=== PATIENT | male | born 1975 | race African-American/Black ===

== ENCOUNTER 2018-08-19 06:08 | Emergency (ER) | payer OTHER ==
[~2018-08-19] VITALS: Ht 172.7 cm; Wt 54.6 kg
[~2018-08-19 06:08] MED LIST: PSEU120T12 PO
[2018-08-19 06:17] VITALS: Ht 172.7 cm; Wt 54.6 kg
[2018-08-19] MEDS ORDERED: IBUP-1542 PO (07:18)
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
[2018-08-19 07:30] VITALS: BP 167/96; PULSE 77; RESP 17
[2018-08-19] MEDS ORDERED: IBUPROFEN 800 MG TAB PO ONE (07:30)
== END 2018-08-19 07:45 | disposition home or self-care (01) ==
LOC: E/R 06:08
DX: R07.9 Chest pain, unspecified (principal); Z87.891 Personal history of nicotine dependence
CPT/HCPCS: 71045; 93005; Z7502; Z7610